=== PATIENT | male | born 1940 | race Caucasian/White ===

== ENCOUNTER → 2016-09-11 | Outpatient (CLI) | payer OTHER ==
[2016-09-11 12:35] LABS: ALBUMIN/GLOBULIN RATIO 1.48 (1.00-1.93); ALKALINE PHOSPHATASE 63 U/L (45-117); ALT/SGPT 14 U/L (12-78); ANION GAP 9 MEQ/L (8-16); AST/SGOT 16 U/L (15-37); BILIRUBIN,TOTAL 0.4 MG/DL (0.2-1.0); BLOOD UREA NITROGEN 18 MG/DL (7-18); CALCIUM LEVEL 8.7 MG/DL (8.8-10.2); CARBON DIOXIDE LEVEL 28 MEQ/L (21-32); CHLORIDE LEVEL 103 MEQ/L (98-107); FREE T4 0.96 NG/DL (0.76-1.46); GLOMERULAR FILTRATION RATE > 60.0 (>42); GLUCOSE, FASTING 114 MG/DL (83-110); POTASSIUM SERUM 4.6 MEQ/L (3.5-5.1); SODIUM LEVEL 140 MEQ/L (136-145); TOTAL PROTEIN 6.7 GM/DL (6.4-8.2)
== END | disposition home or self-care (01) ==
LOC: M WUC 08:37
PROVIDERS: ATTEND Nurse Practitioner Family
DX: R73.01 Impaired fasting glucose (principal); E03.9 Hypothyroidism, unspecified; I25.10 Atherosclerotic heart disease of native coronary artery without angina pectoris

== ENCOUNTER → 2017-01-14 | Outpatient (CLI) | payer OTHER ==
[2017-01-17 10:21] LABS: PSA % FREE 18.8 % (.); PSA FREE 0.75 ng/mL
== END ==
LOC: M WUC 10:57
PROVIDERS: ATTEND Nurse Practitioner Family
DX: R97.20 Elevated prostate specific antigen [PSA] (principal); E55.9 Vitamin D deficiency, unspecified

== ENCOUNTER → 2017-11-18 | Outpatient (CLI) | payer OTHER ==
[2017-11-18 16:34] LABS: BASO # 0.1 10^3/uL (0.0-0.2); BASO % 0.8 % (0.0-1.0); EOS # 0.4 10^3/uL (0.0-0.50); EOS % 4.8 % (0.0-3.0); HEMATOCRIT 47.3 % (42.0-52.0); HEMOGLOBIN 15.4 g/dl (13.5-17.5); IMMATURE GRANULOCYTE % 0.3 % (0-3.0); LYMPH # 2.9 10^3/uL (1.5-4.5); MEAN CORPUSCULAR HEMOGLOBIN 29.7 pg (27.0-33.0); MEAN CORPUSCULAR HGB CONC 32.6 g/dl (32.0-36.5); MEAN CORPUSCULAR VOLUME 91.3 fl (80.0-96.0); MONO # 0.7 10^3/uL (0.0-0.8); MONO % 8.4 % (0.0-5.0); NEUTROPHILS # 3.9 10^3/uL (1.8-7.7); NEUTROPHILS % 48.7 % (36.0-66.0); PLATELET COUNT, AUTOMATED 242 10^3/uL (150-450); RED BLOOD COUNT 5.18 10^6/uL (4.30-6.10); RED CELL DISTRIBUTION WIDTH 14.5 % (11.5-14.5); WHITE BLOOD COUNT 7.9 10^3/uL (4.0-10.0)
[2017-11-18 17:04] LABS: ESTIMATED AVERAGE GLUCOSE 137 MG/DL (60-110); HEMOGLOBIN A1c 6.4 %
[2017-11-18 17:31] LABS: ALBUMIN/GLOBULIN RATIO 1.29 (1.00-1.93); ALKALINE PHOSPHATASE 82 U/L (45-117); ALT/SGPT 16 U/L (12-78); ANION GAP 7 MEQ/L (8-16); AST/SGOT 19 U/L (7-37); BILIRUBIN,TOTAL 0.4 MG/DL (0.2-1.0); BLOOD UREA NITROGEN 19 MG/DL (7-18); CALCIUM LEVEL 8.5 MG/DL (8.8-10.2); CARBON DIOXIDE LEVEL 29 MEQ/L (21-32); CHLORIDE LEVEL 106 MEQ/L (98-107); CREATININE FOR GFR 1.06 MG/DL (0.70-1.30); FREE T4 0.87 NG/DL (0.76-1.46); GLOMERULAR FILTRATION RATE > 60.0 (>42); GLUCOSE, FASTING 86 MG/DL (70-100); POTASSIUM SERUM 4.8 MEQ/L (3.5-5.1); SODIUM LEVEL 142 MEQ/L (136-145); TOTAL PROTEIN 7.1 GM/DL (6.4-8.2)
[2017-11-18 23:59] LABS: FREE T3 2.4 PG/ML (2.2-4.0)
== END ==
LOC: M WUC 10:59
DX: I25.10 Atherosclerotic heart disease of native coronary artery without angina pectoris (principal); E55.9 Vitamin D deficiency, unspecified; R73.01 Impaired fasting glucose; E03.9 Hypothyroidism, unspecified
CPT/HCPCS: 84443

== ENCOUNTER 2018-09-10 21:16 | Emergency (ER) | payer MEDICARE, OTHER ==
[~2018-09-10] VITALS: Ht 182.9 cm; Wt 107.3 kg
[2018-09-10] MEDS ORDERED: ASPIRIN 81 MG CHEW TABLET PO ONE (21:30)
[2018-09-10 21:44] LABS: BASO # 0.1 10^3/uL (0.0-0.2); BASO % 0.7 % (0.0-1.0); EOS # 0.4 10^3/uL (0.0-0.50); EOS % 4.6 % (0.0-3.0); HEMATOCRIT 46.2 % (42.0-52.0); HEMOGLOBIN 15.4 g/dl (13.5-17.5); LYMPH # 2.2 10^3/uL (1.5-4.5); LYMPH % 26.3 % (24.0-44.0); MEAN CORPUSCULAR HEMOGLOBIN 30.3 pg (27.0-33.0); MEAN CORPUSCULAR HGB CONC 33.3 g/dl (32.0-36.5); MEAN CORPUSCULAR VOLUME 90.9 fl (80.0-96.0); MONO # 0.9 10^3/uL (0.0-0.8); MONO % 10.6 % (0.0-5.0); NEUTROPHILS # 4.8 10^3/uL (1.8-7.7); NEUTROPHILS % 57.4 % (36.0-66.0); PLATELET COUNT, AUTOMATED 214 10^3/uL (150-450); RED BLOOD COUNT 5.08 10^6/uL (4.30-6.10); WHITE BLOOD COUNT 8.3 10^3/uL (4.0-10.0)
[2018-09-10 21:56] LABS: INR 1.08; PARTIAL THROMBOPLASTIN TIME 33.7 SECONDS (25.4-37.6); PROTHROMBIN TIME 14.1 SECONDS (12.1-14.4)
[2018-09-10] MEDS ORDERED: NS 500 ML IV ONE (22:00)
[2018-09-10 22:16] LABS: ALBUMIN 3.9 GM/DL (3.2-5.2); ALT/SGPT 15 U/L (12-78); BILIRUBIN,DIRECT < 0.1 MG/DL (0.0-0.2); BILIRUBIN,TOTAL 0.4 MG/DL (0.2-1.0); C REACTIVE PROTEIN QUANTITATIV < 0.30 MG/DL (0.00-0.30); LIPASE 118 U/L (73-393); NT-PRO BNP 71 PG/ML (<450); TOTAL PROTEIN 6.6 GM/DL (6.4-8.2)
[2018-09-10 22:16] LABS: BLOOD UREA NITROGEN 14 MG/DL (7-18); CALCIUM LEVEL 8.2 MG/DL (8.8-10.2); CARBON DIOXIDE LEVEL 27 MEQ/L (21-32); CHLORIDE LEVEL 106 MEQ/L (98-107); CPK CREATINE PHOSPHOKINASE 109 U/L (39-308); CREATININE FOR GFR 1.01 MG/DL (0.70-1.30); GLOMERULAR FILTRATION RATE > 60.0 (>42); GLUCOSE, FASTING 129 MG/DL (70-100); MB/CK RELATIVE INDEX 1.56 (< OR =4); POTASSIUM SERUM 3.7 MEQ/L (3.5-5.1); SODIUM LEVEL 139 MEQ/L (136-145); TROPONIN I < 0.02 NG/ML (< 0.10)
[2018-09-10] MEDS ORDERED: KETOROLAC 30 MG/ML VIAL (J1885) IV ONE (22:30)
[2018-09-10] MEDS ORDERED: ROPI2TAB PO (22:31)
[2018-09-10] MEDS ORDERED: VENL75CA2 PO (22:31)
[2018-09-10] MEDS ORDERED: CETI10TA PO (22:31)
[2018-09-10] MEDS ORDERED: SERT-138 PO (22:31)
[2018-09-10] MEDS ORDERED: OMEP40CA2 PO (22:31)
[2018-09-10] MEDS ORDERED: SYNT75TA PO (22:31)
[2018-09-10] MEDS ORDERED: ASPI81TA85 PO (22:31)
[2018-09-10] MEDS ORDERED: CARB25TA9 PO (22:31)
--- NOTE | 2018-09-10 22:31 | REPVR ---
EXAM: CT Head Without Contrast EXAM DATE/TIME: 09/10/2018 10:10 PM CLINICAL HISTORY: 78 years old, male; Injury or trauma; Fall TECHNIQUE: Axial computed tomography images of the head/brain without contrast. All CT scans at this facility use at least one of these dose optimization techniques: automated exposure control; mA and/or kV adjustment per patient size (includes targeted exams where dose is matched to clinical indication); or iterative reconstruction. COMPARISON: No relevant prior studies available. FINDINGS: Brain: Normal. No hemorrhage. No significant white matter disease. No edema. Ventricles: Normal. No ventriculomegaly. Bones/joints: Unremarkable. No acute fracture. Sinuses: Visualized sinuses are unremarkable. No acute sinusitis. Mastoid air cells: Visualized mastoid air cells are unremarkable. No mastoid effusion. Orbits: Prosthetic right optic globe. Soft tissues: Unremarkable. IMPRESSION: 1. Prosthetic right optic globe. 2. Otherwise negative noncontrast head CT. Electronically signed by: Abdias Niño On 09/10/2018 22:30:39 PM
--- NOTE | 2018-09-10 22:36 | REPVR ---
EXAM: CT Cervical Spine Without Contrast EXAM DATE/TIME: 09/10/2018 10:10 PM CLINICAL HISTORY: 78 years old, male; Injury or trauma; Fall; Initial encounter; Blunt trauma TECHNIQUE: Axial computed tomography images of the cervical spine without intravenous contrast. All CT scans at this facility use at least one of these dose optimization techniques: automated exposure control; mA and/or kV adjustment per patient size (includes targeted exams where dose is matched to clinical indication); or iterative reconstruction. Coronal and sagittal reformatted images were created and reviewed. COMPARISON: No relevant prior studies available. FINDINGS: Vertebrae: No acute fracture. Normal alignment. Soft tissues: Unremarkable. Lungs: Lung apices are normal. DISCS/SPINAL CANAL/NEURAL FORAMINA: C2-C3: Degenerative changes of apophyseal joints bilaterally with no spinal or foraminal stenosis. C3-C4: Slight anterolisthesis with minimal posterior osteophytes and bilateral degenerative changes, primarily of apophyseal joints with no spinal stenosis. There is mild left neural foraminal stenosis. C4-C5: Slight anterolisthesis with bilateral degenerative changes, greatest in the left apophyseal joint with no significant spinal or foraminal stenosis. C5-C6: Moderate interspace narrowing with minimal protrusion and posterior osteophytes and bilateral degenerative change with no significant spinal stenosis. There is borderline left neural foraminal stenosis. C6-C7: Mild degenerative changes of apophyseal joints with no spinal or foraminal stenosis. C7-T1: Slight anterolisthesis with degenerative changes of apophyseal joints in no spinal or foraminal stenosis. IMPRESSION: 1. Multilevel degenerative changes with no spinal stenosis. There is mild left neural foraminal stenosis at C3-C4. 2. No acute fracture or subluxation Electronically signed by: Abdias Niño On 09/10/2018 22:35:43 PM
[2018-09-10] MEDS ORDERED: NORC1TAB4 PO (22:54)
[2018-09-10] MEDS ORDERED: NORCO 5/325MG TABLET (BULK FOR ED) PO ONE (23:00)
[2018-09-10] MEDS ORDERED: NORCO, ANEXSIA 5/325MG TABLET (HYDROcodone/ACETAMINOPHEN) PO ONE (23:00)
[2018-09-10 23:15] VITALS: BP 103/65
--- NOTE | 2018-09-11 06:40 | ECGEPIP ---
Stationary ECG Study [facility] - ED Test Date: 2018-09-10 Pat Name: JOHN VALLE Department: Room: - Gender: M Teacher Music: MARCUS : 1940 Requested By: VIRGINIE Leonard Order Number: [id number] Reading MD: Susie Bustamante Measurements Intervals [place] Rate: 69 P: 59 MD: 194 QRS: 79 QRSD: 106 T: 28 QT: 391 QTc: 420 Interpretive Statements SINUS RHYTHM - PROBABLE POSSIBLE INFERIOR MYOCARDIAL INFARCTION, PROBABLY OLD BASELINE ARTIFACT MAY AFFECT READING NONSPECIFIC ST T WAVE CHANGES CW 04/23/[address] T WAVE CHANGES Electronically Signed On 09-11-2018 6:39:48 EST by Susie Bustamante
--- NOTE | 2018-09-12 11:32 | REP ---
CHEST, SINGLE VIEW: Single view of the chest is performed and compared to prior study of 03/07/2012. Mild interstitial prominence in the lung bases is chronic and stable. There is no acute infiltrate. There is not significant cardiomegaly. The mediastinal silhouette is unchanged. There are degenerative changes of the spine with mild curvature toward the right. IMPRESSION: No acute pulmonary disease. Electronically Signed by Frederick Munoz MD 09/12/2018 10:55 P
== END 2018-09-10 23:45 | disposition home or self-care (01) ==
LOC: M ED 21:16
DX: R07.89 Other chest pain (principal); Z91.81 History of falling; E78.5 Hyperlipidemia, unspecified; M10.9 Gout, unspecified; G20 Parkinson's disease; E03.9 Hypothyroidism, unspecified; Z87.891 Personal history of nicotine dependence; Z88.0 Allergy status to penicillin; Z79.899 Other long term (current) drug therapy; Z79.82 Long term (current) use of aspirin
CPT/HCPCS: 70450; 71045; 72125; 80048; 80076; 82550; 82553; 83690; 83880; 84443; 84484; 85025; 85610; 85730; 86140; 93005; 93041; 94760; 96374; 99285; J1885

== ENCOUNTER 2020-03-20 18:32 | Emergency (ER) | payer MEDICARE ==
[~2020-03-20] VITALS: Ht 182.9 cm; Wt 114.5 kg
[~2020-03-20 18:32] MED LIST: ASPI81TA86 PO; CARB25TA9 PO; CETI10TA PO; NORC1TAB7 PO; OMEP40CA97 PO; ROPI2TAB3 PO; SERT-138 PO; SYNT75TA PO; VENL75CA2 PO
[2020-03-20] MEDS ORDERED: ROSU5TAB5 PO (19:09)
[2020-03-20] MEDS ORDERED: LEVO75TA4 (19:09)
[2020-03-20] MEDS ORDERED: MELO15TA28 PO (19:09)
[2020-03-20] MEDS ORDERED: TRIH2TAB3 (19:09)
[2020-03-20] MEDS ORDERED: BACL10TA2 PO (19:09)
[2020-03-20] MEDS ORDERED: VENL150C43 (19:09)
[2020-03-20] MEDS ORDERED: OMEP-221 (19:09)
--- NOTE | 2020-03-20 19:20 | REPVR ---
PROCEDURE INFORMATION: Exam: CT Head Without Contrast Exam date and time: 03/20/2020 7:06 PM Age: 80 years old Clinical indication: Injury or trauma; Fall; Initial encounter; Blunt trauma (contusions or hematomas); Additional info: Fall/pain TECHNIQUE: Imaging protocol: Computed tomography of the head without contrast. Radiation optimization: All CT scans at this facility use at least one of these dose optimization techniques: automated exposure control; mA and/or kV adjustment per patient size (includes targeted exams where dose is matched to clinical indication); or iterative reconstruction. COMPARISON: CT Head without contrast 09/10/2018 10:04 PM FINDINGS: Brain: There is mild parenchymal volume loss. White matter changes are demonstrated in the subcortical, centrum semiovale and periventricular white matter consistent with age related small vessel white matter angiopathic gliosis. Small foci of intracranial air demonstrated in the anterior parafalcine region. Ventricles: The degree of ventricular dilatation is normal for age and/or degree of atrophy present. Bones/joints: Unremarkable. No acute fracture. Sinuses: Visualized sinuses are unremarkable. No fluid levels. Mastoid air cells: Visualized mastoid air cells are well aerated. Orbits: Prostatic right optic globe. Vasculature: Atherosclerotic calcifications are demonstrated in the intracranial carotid arteries bilaterally as well as in the vertebral basilar system. Soft tissues: Left frontal soft tissue hematoma. IMPRESSION: 1. There is mild parenchymal volume loss. White matter changes are demonstrated in the subcortical, centrum semiovale and periventricular white matter consistent with age related small vessel white matter angiopathic gliosis. 2. The degree of ventricular dilatation is normal for age and/or degree of atrophy present. 3. Left frontal soft tissue hematoma. No skull fracture. 4. Small foci of intracranial air demonstrated in the anterior parafalcine region. Electronically signed by: Paul Joseph On 03/20/2020 19:19:59 PM
--- NOTE | 2020-03-20 19:28 | REPVR ---
PROCEDURE INFORMATION: Exam: CT Maxillofacial Without Contrast Exam date and time: 03/20/2020 7:06 PM Age: 80 years old Clinical indication: Injury or trauma; Fall; Initial encounter; Blunt trauma (contusions or hematomas); Lip/oral cavity; Upper; Additional info: Fell TECHNIQUE: Imaging protocol: Computed tomography images of the face without contrast. Radiation optimization: All CT scans at this facility use at least one of these dose optimization techniques: automated exposure control; mA and/or kV adjustment per patient size (includes targeted exams where dose is matched to clinical indication); or iterative reconstruction. COMPARISON: No relevant prior studies available. FINDINGS: Orbits: Prostatic right globe. Bones/joints: Degenerative changes cervical spine. Bifid anterior C1. Indentation along the anterior margin of the left maxillary sinus suggests a slightly impacted anterior wall fracture. Sinuses: Normal. No air-fluid levels. Brain: Small pockets of intracranial air demonstrated in the anterior parafalcine region. Soft tissues: Soft tissue contusion in the left buccal region with multiple pockets of air extending along the anterior margin of the left maxillary sinus from the nose to the anterior inferior margin of the zygomatic arch. IMPRESSION: 1. Small pockets of intracranial air demonstrated in the anterior parafalcine region. 2. Soft tissue contusion in the left buccal region with multiple pockets of air extending along the anterior margin of the left maxillary sinus from the nose to the anterior inferior margin of the zygomatic arch. 3. Indentation along the anterior margin of the left maxillary sinus suggests a slightly impacted anterior wall fracture. Electronically signed by: Paul Joseph On 03/20/2020 19:28:54 PM
--- NOTE | 2020-03-20 19:36 | REPVR ---
PROCEDURE INFORMATION: Exam: CT Cervical Spine Without Contrast Exam date and time: 03/20/2020 7:06 PM Age: 80 years old Clinical indication: Injury or trauma; Fall; Initial encounter; Blunt trauma; Additional info: Fall/pain TECHNIQUE: Imaging protocol: Computed tomography images of the cervical spine without contrast. Radiation optimization: All CT scans at this facility use at least one of these dose optimization techniques: automated exposure control; mA and/or kV adjustment per patient size (includes targeted exams where dose is matched to clinical indication); or iterative reconstruction. COMPARISON: CT Spine,cervical w/o contrast 09/10/2018 10:04 PM FINDINGS: Vertebrae: Nondisplaced fracture anterior margin of C1. Multilevel bilateral facet joint arthropathy. Slight anterolisthesis of C6 on C7. Discs/Spinal canal/Neural foramina: There are degenerative changes demonstrated in the atlantoaxial joint at C1-C2 with osteophytes and joint space narrowing. The transverse ligament is thickened and calcified. Disc space narrowing at C5-C6 with intervertebral osteophytes. Moderate to severe foraminal narrowing on the left at C3, moderate to severe bilateral foraminal narrowing at C4, moderate to severe bilateral foraminal narrowing at C5 secondary to uncinate joint hypertrophic changes. Soft tissues: See "Discs/Spinal canal/Neural foramina" finding. Lungs: Lung apices are normal. IMPRESSION: Nondisplaced fracture anterior margin of C1. 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 Slight anterolisthesis of C6 and C7 stable since the prior study. THIS REPORT CONTAINS FINDINGS THAT MAY BE CRITICAL TO PATIENT CARE. The findings were verbally communicated via telephone conference with MARIO ARSHAD at 7:34 PM EDT on 03/20/2020. The findings were acknowledged and understood. Electronically signed by: Paul Joseph On 03/20/2020 19:36:39 PM
[2020-03-20 20:43] LABS: BASO # 0.1 10^3/uL (0.0-0.2); BASO % 0.7 % (0.0-1.0); EOS # 0.5 10^3/uL (0.0-0.5); EOS % 4.2 % (0.0-3.0); HEMATOCRIT 43.4 % (42.0-52.0); HEMOGLOBIN 14.1 g/dl (13.5-17.5); LYMPH # 2.3 10^3/uL (1.5-5.0); LYMPH % 19.3 % (24.0-44.0); MEAN CORPUSCULAR HEMOGLOBIN 30.3 pg (27.0-33.0); MEAN CORPUSCULAR HGB CONC 32.5 g/dl (32.0-36.5); MEAN CORPUSCULAR VOLUME 93.3 fl (80.0-96.0); MONO % 8.1 % (0.0-5.0); NEUTROPHILS # 7.9 10^3/uL (1.5-8.5); NEUTROPHILS % 66.4 % (36.0-66.0); PLATELET COUNT, AUTOMATED 219 10^3/uL (150-450); RED BLOOD COUNT 4.65 10^6/uL (4.30-6.10); WHITE BLOOD COUNT 11.9 10^3/uL (4.0-10.0)
[2020-03-20 20:55] VITALS: BP 154/72
[2020-03-20 21:13] LABS: BLOOD UREA NITROGEN 17 MG/DL (7-18); CALCIUM LEVEL 8.4 MG/DL (8.8-10.2); CARBON DIOXIDE LEVEL 29 MEQ/L (21-32); CHLORIDE LEVEL 111 MEQ/L (98-107); GLOMERULAR FILTRATION RATE > 60.0 (>42); GLUCOSE, FASTING 119 MG/DL (70-100); SODIUM LEVEL 142 MEQ/L (136-145)
[2020-03-20 21:16] LABS: INR 1.17; PROTHROMBIN TIME 15.2 SECONDS (11.8-14.0)
== END 2020-03-20 21:06 | disposition short-term general hospital (02) ==
LOC: M ED 18:32 → EDBD 18:32 → M ED 21:06
DX: S12.090A Other displaced fracture of first cervical vertebra, initial encounter for closed fracture (principal); S02.40DA Maxillary fracture, left side, initial encounter for closed fracture; S01.511A Laceration without foreign body of lip, initial encounter; S06.9X9A Unspecified intracranial injury with loss of consciousness of unspecified duration, initial encounter; W10.8XXA Fall (on) (from) other stairs and steps, initial encounter; Y92.098 Other place in other non-institutional residence as the place of occurrence of the external cause; G20 Parkinson's disease; E03.9 Hypothyroidism, unspecified; K21.9 Gastro-esophageal reflux disease without esophagitis; Z88.0 Allergy status to penicillin; Z79.899 Other long term (current) drug therapy; Z79.82 Long term (current) use of aspirin

== ENCOUNTER → 2020-07-12 | Outpatient (CLI) | payer MEDICARE ==
[~2020-07-12] MED LIST changes: +BACL10TA2 PO; +LEVO75TA4; +MELO15TA28 PO; +OMEP-221; +ROSU5TAB5 PO; +TRIH2TAB3; +VENL150C43
== END ==
LOC: M LABSMTC 13:41
PROVIDERS: ATTEND Family Medicine
DX: Z20.828 Contact with and (suspected) exposure to other viral communicable diseases (principal)

== ENCOUNTER → 2020-08-06 | Outpatient (CLI) | payer MEDICARE ==
[2020-08-06 13:31] LABS: APPEARANCE, URINE CLEAR (CLEAR); BACTERIA, URINE AUTO NEGATIVE (NEGATIVE); BILIRUBIN, URINE AUTO NEGATIVE (NEGATIVE); BLOOD, URINE BLOOD NEGATIVE (NEGATIVE); COLOR, URINE YELLOW (YELLOW); GLUCOSE, URINE (UA) AUTO NEGATIVE (NEGATIVE); KETONE, URINE AUTO TRACE mg/dL (NEGATIVE); LEUKOCYTE ESTERASE, URINE AUTO NEGATIVE (NEGATIVE); NITRITE, URINE AUTO NEGATIVE (NEGATIVE); PROTEIN, URINE AUTO NEGATIVE (NEGATIVE); RBC, URINE AUTO 1 /HPF (0-3); SPECIFIC GRAVITY URINE AUTO 1.019 (1.002-1.035); SQUAMOUS EPITHELIAL CELL UR AU 0 /HPF (0-6); UROBILINOGEN, URINE AUTO 0.2 mg/dL (0.0-2.0); WBC, URINE AUTO 0 /HPF (0-3)
[2020-08-06 13:41] LABS: HEMATOCRIT 40.8 % (42.0-52.0); HEMOGLOBIN 12.9 g/dl (13.5-17.5); MEAN CORPUSCULAR HEMOGLOBIN 29.5 pg (27.0-33.0); MEAN CORPUSCULAR HGB CONC 31.6 g/dl (32.0-36.5); MEAN CORPUSCULAR VOLUME 93.2 fl (80.0-96.0); PLATELET COUNT, AUTOMATED 188 10^3/uL (150-450); RED BLOOD COUNT 4.38 10^6/uL (4.30-6.10); WHITE BLOOD COUNT 6.7 10^3/uL (4.0-10.0)
[2020-08-06 14:27] LABS: ALBUMIN 3.7 GM/DL (3.2-5.2); ALT/SGPT 8 U/L (12-78); BILIRUBIN,TOTAL 0.6 MG/DL (0.2-1.0); BLOOD UREA NITROGEN 18 MG/DL (7-18); CALCIUM LEVEL 8.5 MG/DL (8.8-10.2); CARBON DIOXIDE LEVEL 28 MEQ/L (21-32); CHLORIDE LEVEL 105 MEQ/L (98-107); CREATININE FOR GFR 0.88 MG/DL (0.70-1.30); GLOMERULAR FILTRATION RATE > 60.0 (>42); GLUCOSE, FASTING 103 MG/DL (70-100); NT-PRO BNP 157 PG/ML (<450); POTASSIUM SERUM 4.4 MEQ/L (3.5-5.1); SODIUM LEVEL 138 MEQ/L (136-145); TOTAL PROTEIN 6.5 GM/DL (6.4-8.2)
== END ==
LOC: M WUC 08:36
PROVIDERS: ATTEND Family Medicine
DX: R60.9 Edema, unspecified (principal)

== ENCOUNTER → 2020-10-01 | Outpatient (CLI) | payer MEDICARE ==
[2020-10-01 16:53] LABS: FREE T3 2.4 PG/ML (2.2-4.0); FREE T4 0.84 NG/DL (0.76-1.46); THYROID STIMULATING HORMONE 5.32 uIU/ML (0.358-3.740)
== END ==
LOC: M WUC 11:45
PROVIDERS: ATTEND Family Medicine
DX: E03.9 Hypothyroidism, unspecified (principal)

== ENCOUNTER → 2021-07-04 | Outpatient (CLI) | payer MEDICARE ==
[~2021-07-04] MED LIST changes: +OMEP40CA4 PO; -OMEP40CA97 PO
[2021-07-04 08:47] LABS: BASO # 0.1 10^3/uL (0.0-0.2); BASO % 0.9 % (0.0-1.0); EOS # 0.4 10^3/uL (0.0-0.5); EOS % 5.8 % (0.0-3.0); HEMATOCRIT 44.4 % (42.0-52.0); HEMOGLOBIN 14.4 g/dl (13.5-17.5); LYMPH # 2.1 10^3/uL (1.5-5.0); LYMPH % 33.2 % (24.0-44.0); MEAN CORPUSCULAR HEMOGLOBIN 30.9 pg (27.0-33.0); MEAN CORPUSCULAR HGB CONC 32.4 g/dl (32.0-36.5); MEAN CORPUSCULAR VOLUME 95.3 fl (80.0-96.0); MONO # 0.7 10^3/uL (0.0-0.8); MONO % 11.4 % (2.0-8.0); NEUTROPHILS # 3.1 10^3/uL (1.5-8.5); NEUTROPHILS % 48.5 % (36.0-66.0); PLATELET COUNT, AUTOMATED 187 10^3/uL (150-450); RED BLOOD COUNT 4.66 10^6/uL (4.30-6.10); WHITE BLOOD COUNT 6.4 10^3/uL (4.0-10.0)
[2021-07-04 09:20] LABS: ALBUMIN 3.8 GM/DL (3.2-5.2); ALT/SGPT 12 U/L (12-78); BILIRUBIN,TOTAL 0.5 MG/DL (0.2-1.0); BLOOD UREA NITROGEN 16 MG/DL (7-18); CALCIUM LEVEL 8.6 MG/DL (8.8-10.2); CARBON DIOXIDE LEVEL 32 MEQ/L (21-32); CHLORIDE LEVEL 105 MEQ/L (98-107); GLOMERULAR FILTRATION RATE > 60.0 (>42); GLUCOSE, FASTING 120 MG/DL (70-100); POTASSIUM SERUM 3.9 MEQ/L (3.5-5.1); SODIUM LEVEL 142 MEQ/L (136-145); TOTAL PROTEIN 6.9 GM/DL (6.4-8.2)
--- NOTE | 2021-07-04 19:14 | ECGEPIP ---
[facility] Test Date: 2021-07-04 Pat Name: JOHN VALLE Department: Room: - Gender: Male [employer]: PEYTON : 1940 Requested By: JOEY DOW Order Number: [id number] Reading MD: Dayday Concepcion Measurements Intervals [place] Rate: 62 P: 38 ME: 228 QRS: 76 QRSD: 104 T: 74 QT: 434 QTc: 440 Interpretive Statements Undetermined rhythm Baseline artifact Nonspecific ST-T wave abnormalities Similar to tracing done 09-10-18 Electronically Signed on 07-04-2021 19:14:34 EST by Dayday Concepcion
== END ==
LOC: M EKG 07:43
PROVIDERS: ATTEND Family Medicine
DX: Z01.818 Encounter for other preprocedural examination (principal)

== ENCOUNTER 2023-01-05 09:04 | Day surgery (SDC) | payer MEDICARE, OTHER ==
[~2023-01-05] VITALS: Ht 180.3 cm; Wt 119.7 kg
[~2023-01-05 09:04] MED LIST changes: +ACETYLCHOLINE OPHTH SOLN 1% 2ML (MIOCHOL-E) As Ordered ONE; +ASPI81TA26 PO; +D 1010004 PO; +D 50CAP2 PO; +DULC5TAB PO; +FURO40TA2 PO; -LEVO75TA4; +LEVO75TA4 PO; +LIDOCAINE 1% SDV 5ML VIAL As Ordered ONE; -OMEP-221; +OMEP40CA5; +PROPARACAINE 0.5% OPHTH SOL 15ML OS ONE; +TOBRADEX OPHTH OINT 3.5 GM As Ordered ONE; -TRIH2TAB3; +TRIH2TAB3 PO; +ZYRTTAB8 PO
[2023-01-05] MEDS: OFLOXACIN 0.3 % (OCUFLOX) OPTH SOL 5ML OS SCH (09:50)
[2023-01-05] MEDS: PHENYLEPHRINE 2.5% OPHTH SOL 2ML OS SCH (09:50)
[2023-01-05] MEDS: TROPICAMIDE 1% OPHTH SOLN 15ML OS SCH (09:50)
[2023-01-05] MEDS: CYCLOPENTOLATE 1% OPHTH SOLN 2ML BTL OS SCH (09:50)
[2023-01-05] MEDS ORDERED: fentaNYL 100 MCG/2 ML INJECTION As Ordered ONE (10:25)
[2023-01-05 11:36] VITALS: BP 171/87; TEMP 97.2; O2SAT 97
== END 2023-01-05 12:53 | disposition home or self-care (01) ==
LOC: M SDC 09:04
PROVIDERS: ATTEND Ophthalmology
DX: H25.12 Age-related nuclear cataract, left eye (principal); H40.10X2 Unspecified open-angle glaucoma, moderate stage; Z97.0 Presence of artificial eye; E07.9 Disorder of thyroid, unspecified; I10 Essential (primary) hypertension; M54.50 Low back pain, unspecified; G20 Parkinson's disease; F32.A Depression, unspecified; Z88.0 Allergy status to penicillin; Z79.899 Other long term (current) drug therapy; Z79.890 Hormone replacement therapy; Z79.82 Long term (current) use of aspirin
CPT/HCPCS: 66174; 66984; C1889; J3010; V2632

== ENCOUNTER → 2024-08-11 | Outpatient (REF) | payer MEDICARE, OTHER ==
[~2024-08-11] MED LIST changes: -ACETYLCHOLINE OPHTH SOLN 1% 2ML (MIOCHOL-E) As Ordered ONE; -LIDOCAINE 1% SDV 5ML VIAL As Ordered ONE; -PROPARACAINE 0.5% OPHTH SOL 15ML OS ONE; -ROPI2TAB3 PO; +ROPI2TAB46 PO; +ROSU5TAB49 PO; -ROSU5TAB5 PO; -TOBRADEX OPHTH OINT 3.5 GM As Ordered ONE
== END ==
LOC: M SMT 13:03
PROVIDERS: ATTEND Urology
DX: C61 Malignant neoplasm of prostate (principal); R97.20 Elevated prostate specific antigen [PSA]; Z79.82 Long term (current) use of aspirin; Z79.899 Other long term (current) drug therapy; Z79.890 Hormone replacement therapy; Z88.0 Allergy status to penicillin; Z91.013 Allergy to seafood; Z82.49 Family history of ischemic heart disease and other diseases of the circulatory system; Z87.891 Personal history of nicotine dependence

== ENCOUNTER → 2024-09-01 | Outpatient (REF) | payer MEDICARE ==
[2024-09-01 18:01] LABS: BLOOD UREA NITROGEN 22 MG/DL (9-23); CALCIUM LEVEL 8.7 MG/DL (8.3-10.6); CARBON DIOXIDE LEVEL 30 MMOL/L (20-31); CHLORIDE LEVEL 105 MMOL/L (98-107); GLOMERULAR FILTRATION RATE > 60.0 (>35); GLUCOSE, FASTING 161 MG/DL (74-106); POTASSIUM SERUM 4.5 MMOL/L (3.5-5.1); SODIUM LEVEL 143 MMOL/L (136-145)
== END ==
LOC: M LABWUC 16:39
PROVIDERS: ATTEND Urology
DX: C61 Malignant neoplasm of prostate (principal)

== ENCOUNTER → 2025-03-02 | Outpatient (REF) | payer MEDICARE | LOC: M LABWUC 16:44 | PROVIDERS: ATTEND Urology | DX: C61 Malignant neoplasm of prostate (principal) ==